=== PATIENT | female | born 1985 | race Caucasian/White ===

== ENCOUNTER 2017-09-28 10:20 | Emergency (ER) | payer OTHER ==
[~2017-09-28] VITALS: Ht 170.2 cm; Wt 85.0 kg
[2017-09-28 10:20] VITALS: TEMP 36.7; Ht 170.2 cm; Wt 85.0 kg
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
[2017-09-28 10:40] VITALS: O2SAT 98
[2017-09-28] MEDS ORDERED: SODIUM CHLORIDE 0.9% 1000ML 1,000 ML IV STA ×2 (10:40→13:18)
[2017-09-28] MEDS ORDERED: LORAZEPAM 2 MG/ML 1 ML VIAL IV STA (10:40)
[2017-09-28 11:54] LABS: INR 1.1 (0.9-1.1)
[2017-09-28 12:02] LABS: ALBUMIN 3.9 gm/dl (3.4-5.0); CALCIUM 9.3 mg/dl (8.5-10.1); CREATININE 1.07 mg/dl (0.60-1.20); POTASSIUM 3.6 mmol/L (3.5-5.1)
[2017-09-28 12:05] LABS: TOTAL PROTEIN 8.4 gm/dl (6.4-8.2)
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
[2017-09-28 12:21] LABS: BASO % 0.4 %; BASO ABS # 0.05 K/uL (0-0.2); EOS % 2.1 %; EOS ABS # 0.28 K/uL (0-0.5); HEMATOCRIT 40.4 % (37-47); HEMOGLOBIN 14.2 g/dL (12.0-16.0); IG# 0.04 K/uL (0.00-0.02); LYMPH % 24.4 %; MEAN CELL VOLUME 86.9 fL (80-100); MEAN CORPUSCULAR HEMOGLOBIN 30.5 pg (25-34); MEAN CORPUSCULAR HGB CONC 35.1 g/dl (32-36); MEAN PLATELET VOLUME 9.4 fL (7.4-10.4); MONO % 7.5 %; MONO ABS # 1.01 K/uL (0.11-0.59); NEUT % 65.3 %; NEUT ABS # 8.82 K/uL (1.4-6.5); PLATELET COUNT 282 K/uL (130-400); RED CELL DISTRIBUTION WIDTH CV 13.5 % (11.5-14.5); RED CELL DISTRIBUTION WIDTH SD 42.8 fL (36.4-46.3)
[2017-09-28 14:08] VITALS: BP 142/86; PULSE 106; O2SAT 97
== END 2017-09-28 14:36 | disposition home or self-care (01) ==
LOC: EDBD 10:20 → C.EDA 10:21
DX: M54.2 Cervicalgia (principal); V47.5XXA Car driver injured in collision with fixed or stationary object in traffic accident, initial encounter; Y92.524 Gas station as the place of occurrence of the external cause; F11.20 Opioid dependence, uncomplicated; F31.9 Bipolar disorder, unspecified; F41.9 Anxiety disorder, unspecified; Z87.440 Personal history of urinary (tract) infections; F17.210 Nicotine dependence, cigarettes, uncomplicated; Z83.3 Family history of diabetes mellitus; Z80.9 Family history of malignant neoplasm, unspecified; Z82.49 Family history of ischemic heart disease and other diseases of the circulatory system; Z88.2 Allergy status to sulfonamides

== ENCOUNTER → 2017-09-28 | Outpatient (CLI) | payer OTHER | END | disposition home or self-care (01) | LOC: C.LAB 11:10 | DX: Z02.83 Encounter for blood-alcohol and blood-drug test (principal) ==